=== PATIENT | male | born 1980 | race Caucasian/White ===

== ENCOUNTER 2018-06-15 07:05 | Emergency (ER) | END 2018-06-15 10:02 | disposition home or self-care (01) ==

== ENCOUNTER 2018-12-25 17:45 | Emergency (ER) | payer SELFPAY ==
[~2018-12-25] VITALS: Ht 188 cm; Wt 73.1 kg
[~2018-12-25 17:45] MED LIST: FAMO-96 PO; MAG-19 PO; ONDA4TAB14 PO
[2018-12-25 18:14] VITALS: BP 116/76; PULSE 117; RESP 18; Ht 188 cm; Wt 73.1 kg
== END 2018-12-25 20:45 | disposition left against medical advice (07) ==
LOC: FTE 17:45
DX: Z53.21 Procedure and treatment not carried out due to patient leaving prior to being seen by health care provider (principal)

== ENCOUNTER 2019-02-07 07:16 | Emergency (ER) | payer OTHER ==
[~2019-02-07] VITALS: Ht 177.8 cm; Wt 72.1 kg
[2019-02-07 07:19] VITALS: BP 140/86; PULSE 89; RESP 18; Ht 177.8 cm; Wt 72.1 kg
[2019-02-07] MEDS ORDERED: ACET-141 PO (08:10)
--- NOTE | 2019-02-07 08:14 | ERD ---
ER Documentation Chief Complaint Chief Complaint "im very depressed".suicidal thoughts wants to run into traffic.gen mack HPI This is a 38-year-old male that indicates he has a history of depression. Patient states he is not taking any antidepressant medications. 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 Contrary to the triage note the patient denies any suicidal thoughts. In triage he had told the nurse that he wanted to run into traffic however when I spoke with the patient he states he is never had any suicidal thoughts or ideations in the past. He states he feels anxious. He has not used crystal meth for 3 days. He also indicates he smokes tobacco and marijuana but has not had any marijuana for the past 3 days. Indicates he would like to speak to a psychiatrist if he wants help with his depression. He feels lonely and helpless and states "I want to help myself." ROS All systems reviewed and are negative except as per history of present illness. Medications Home Meds Reported Medications Acetaminophen* (Acetaminophen*) 500 MG Extra Strength Tablet, 500 MG PO Q4H PRN for PAIN AND OR ELEVATED TEMP, TAB 02/07/19 Discontinued Scripts Ondansetron (Ondansetron Odt) 4 Mg Tab.rapdis, 4 MG PO Q6H PRN for NAUSEA AND/OR VOMITING, #10 TAB Prov:DAISY CADE PA-C 06/15/18 Magaldrate/Simethicone* (Mylanta*) 355 Ml Susp, 30 ML PO QID PRN for GASTROINTESTINAL UPSET, #1 BOTTLE Prov:DAISY CADE PA-C 06/15/18 Famotidine* (Pepcid*) 20 Mg Tablet, 20 MG PO BID for 4 Days, TAB Prov:DAISY CADE PA-C 06/15/18 Allergies Allergies: Coded Allergies: No Known Allergy (Unverified , 02/07/19) PMhx/Soc Hx Psychiatric Problems: Yes (depression) Hx Miscellaneous Medical Probl: Yes (hernia) Hx Alcohol Use: No Hx Substance Use: Yes (marijuana) Hx Tobacco Use: No Smoking Status: Never smoker Physical Exam Vitals Vital Signs Date Temp Pulse Resp B/P (MAP) Pulse Ox O2 O2 Flow FiO2 Time Delivery Rate 02/07/19 97.8 89 18 140/86 95 07:19 (104) Physical Exam Constitutional:Well-developed. Well-nourished. HEENT:Normocephalic. Atraumatic.Pupils were 4 millimeters equal round reactive to light. Moist mucous membranes.No tonsillar exudates. Neck: No nuchal rigidity. No lymphadenopathy. No posterior cervical spine tenderness or step-offs. Respiratory: Not using accessory muscles of respiration.Lungs were clear to auscultation bilaterally. No rhonchi. No rales. No wheezing. Cardiovascular: Regular rate regular rhythm.No murmurs. No rubs were appreciated.S1, S2 normal. Distal pulses are palpable 2+ bilaterally. GI: Abdomen was soft. Nontender. Non Distended. No pulsatile abdominal masses or bruits. No rebound. No guarding. Bowel sounds were present and normal. Muscle skeletal: Full range of motion of both the upper and lower extremities bilaterally.Normal muscle tone.No assymetrical calf tenderness or swelling. Skin: No petechia, no purpura. No lesions on the palms or the soles of the feet. No maculopapular rash. NEURO: Patient was alert, awake, orientated x3.No facial droop. Gait observed and normal with no ataxia.Speech had regular rate and rhythm. No focal neurological deficits. PSYCH: The patient made good eye contact. Spoke very rapidly. Denied any suicidal homicidal thoughts or ideations. Patient stated he was sad and depressed. Result Diagram: 02/07/19 0748 Results 24 hrs Laboratory Tests Test 02/07/19 07:48 White Blood Count 3.6 10^3/ul Red Blood Count 4.26 10^6/ul Hemoglobin 13.1 g/dl Hematocrit 40.1 % Mean Corpuscular Volume 94.1 fl Mean Corpuscular Hemoglobin 30.8 pg Mean Corpuscular Hemoglobin Concent 32.7 g/dl Red Cell Distribution Width 11.4 % Platelet Count 379 10^3/UL Mean Platelet Volume 8.2 fl Immature Granulocytes % 0.000 % Neutrophils % 49.5 % Lymphocytes % 39.2 % Monocytes % 6.8 % Eosinophils % 3.9 % Basophils % 0.6 % Nucleated Red Blood Cells % 0.0 /100WBC Immature Granulocytes # 0.000 10^3/ul Neutrophils # 1.8 10^3/ul Lymphocytes # 1.4 10^3/ul Monocytes # 0.2 10^3/ul Eosinophils # 0.1 10^3/ul Basophils # 0.0 10^3/ul Nucleated Red Blood Cells # 0.0 10^3/ul Procedures/MDM The patient presented to the emergency department with an active depression. My differential diagnosis included but was not limited to major depressive disorder, normal despondency, bipolar disorder, schizophrenia, anxiety disorder, borderline personality disorder, antisocial personality disorder, organic mental disorder, bereavement or alcohol or drug abuse. Ancillary lab work was obtained including blood alcohol level, drug screen and serum toxicology panel. The patient was provided a safe environment while in the emergency department with appropriate supervision. The patient will be seen and evaluated by the tele-psychiatrist as the patient was depressed and stated he wanted help. Departure Diagnosis: Primary Impression: Depression Depression Type: unspecified Qualified Codes: F32.9 - Major depressive disorder, single episode, unspecified Condition: RODO Wyman MD Feb 07, 2019 08:14
--- NOTE | 2019-02-07 12:08 | PSY ---
Date/Time of Note Date/Time of Note DATE: 02/07/19 TIME: 12:05 Psychiatric Subjective Eval Consent Pt consented to telemedicine: Yes Subjective Evaluation Patient location: emergency Chief Complaint: "im very depressed".suicidal thoughts wants to run into traffic.gen rash History of present illness Attempted to evalaute the pt. Beamed on the robot a few times. The room was empty. THen the pt showed up - the security field supervisor informed me the pt left the hospital and just came back. The pt told me he is not willing to speak to me, because it is not private, other people are around. He said he is "cancelling the consultation". Medical history Problems Medical Problems: (1) Abdominal pain Status: Acute (2) Depression Status: Acute (3) Epigastric abdominal pain Status: Acute (4) Patient left after triage Status: Acute (5) Vomiting Status: Acute (6) Vomiting Status: Acute Allergies: Coded Allergies: No Known Allergy (Unverified , 02/07/19) Psychiatric Objective Eval Mental Status Examination: Appearance: Groomed Eye Contact: Fair Psychomotor Activity: Normal Behavior: Guarded Speech: Clear AFFECT: Guarded Mood: Irritable Laboratory Results Laboratory Tests Test 02/07/19 07:48 02/07/19 07:50 White Blood Count 3.6 10^3/ul Red Blood Count 4.26 10^6/ul Hemoglobin 13.1 g/dl Hematocrit 40.1 % Mean Corpuscular Volume 94.1 fl Mean Corpuscular Hemoglobin 30.8 pg Mean Corpuscular Hemoglobin Concent 32.7 g/dl Red Cell Distribution Width 11.4 % Platelet Count 379 10^3/UL Mean Platelet Volume 8.2 fl Immature Granulocytes % 0.000 % Neutrophils % 49.5 % Lymphocytes % 39.2 % Monocytes % 6.8 % Eosinophils % 3.9 % Basophils % 0.6 % Nucleated Red Blood Cells % 0.0 /100WBC Immature Granulocytes # 0.000 10^3/ul Neutrophils # 1.8 10^3/ul Lymphocytes # 1.4 10^3/ul Monocytes # 0.2 10^3/ul Eosinophils # 0.1 10^3/ul Basophils # 0.0 10^3/ul Nucleated Red Blood Cells # 0.0 10^3/ul Prothrombin Time 12.7 Sec Prothrombin Time Ratio 1.0 INR International Normalized Ratio 0.94 Activated Partial Thromboplast Time 29.7 Sec Sodium Level 143 mmol/L Potassium Level 3.5 mmol/L Chloride Level 104 mmol/L Carbon Dioxide Level 31 mmol/L Anion Gap 8 Blood Urea Nitrogen 11 mg/dl Creatinine 0.96 mg/dl Est Glomerular Filtrat Rate mL/min > 60 mL/min Glucose Level 76 mg/dl Calcium Level 9.3 mg/dl Total Bilirubin 1.0 mg/dl Direct Bilirubin 0.00 mg/dl Indirect Bilirubin 1.0 mg/dl Aspartate Amino Transf (AST/SGOT) 38 IU/L Alanine Aminotransferase (ALT/SGPT) 31 IU/L Alkaline Phosphatase 87 IU/L Total Protein 7.5 g/dl Albumin 4.3 g/dl Globulin 3.20 g/dl Albumin/Globulin Ratio 1.34 Salicylates Level < 1.0 mg/dl Acetaminophen Level < 10.0 ug/ml Ethyl Alcohol Level < 10.0 mg/dl Urine Color STRAW Urine Clarity CLEAR Urine pH 6.0 Urine Specific [place] 1.005 Urine Ketones NEGATIVE mg/dL Urine Nitrite NEGATIVE mg/dL Urine Bilirubin NEGATIVE mg/dL Urine Urobilinogen NEGATIVE mg/dL Urine Leukocyte Esterase NEGATIVE Benjamin/ul Urine Hemoglobin NEGATIVE mg/dL Urine Glucose NEGATIVE mg/dL Urine Total Protein NEGATIVE mg/dl Urine Opiates Screen Negative Urine Barbiturates Negative Urine Amphetamines Screen POSITIVE Urine Benzodiazepines Screen Negative Urine Cocaine Screen Negative Urine Cannabinoids Positive Assessment and Plan Assessment/Diagnosis Diagnosis AMPHETAMINE USE DISORDER. Recommendation/Plan Discharge Disposition: Other (Other) Legal Status: Voluntary Other NOT ABLE TO COMPLETE CONSULTATION DUE TO PT'S LACK OF COOPERATION. JAS AMES MD Feb 07, 2019 12:08
== END 2019-02-07 12:20 | disposition home or self-care (01) ==
LOC: E/R 07:16
DX: F32.9 Major depressive disorder, single episode, unspecified (principal); R40.2142 Coma scale, eyes open, spontaneous, at arrival to emergency department; R40.2362 Coma scale, best motor response, obeys commands, at arrival to emergency department; R40.2252 Coma scale, best verbal response, oriented, at arrival to emergency department
CPT/HCPCS: 80053; 80307; 81003; 85025; 85610; 85730; Z7502; 99285